=== PATIENT | male | born 1950 | race Caucasian/White ===

== ENCOUNTER → 2020-04-09 | Outpatient (CLI) | payer MEDICARE ==
[~2020-04-09] MED LIST: ATOR40TA PO; ENAHYD PO; FEXPSEER PO; Lisinopril-Hct1 EAC4 PO; METPRE4DP PO; OMEP20ER PO; PRAV20 PO; Robaxin-750750 MG PO; TRAM50 PO
== END ==
LOC: LAB SHORT 08:03 → PLD 08:03
DX: D48.5 Neoplasm of uncertain behavior of skin (principal); Z88.5 Allergy status to narcotic agent
CPT/HCPCS: 88305

== ENCOUNTER 2020-05-06 07:35 | Emergency (ER) | payer MEDICARE ==
[~2020-05-06] VITALS: Ht 172.7 cm; Wt 77.1 kg
[~2020-05-06 07:35] MED LIST changes: -ATOR40TA PO; -Lisinopril-Hct1 EAC4 PO; -METPRE4DP PO; -Robaxin-750750 MG PO; -TRAM50 PO
[2020-05-06] MEDS ORDERED: Lisinopril-Hct1 EAC4 PO (07:46)
[2020-05-06] MEDS ORDERED: ATOR40TA PO (07:46)
[2020-05-06] MEDS ORDERED: METPRE4DP PO (09:41)
[2020-05-06] MEDS ORDERED: Robaxin-750750 MG PO (09:41)
[2020-05-06] MEDS ORDERED: TRAM50 PO (09:41)
== END 2020-05-06 10:10 | disposition home or self-care (01) ==
LOC: ER 07:35
DX: M54.17 Radiculopathy, lumbosacral region (principal); G89.29 Other chronic pain; K21.9 Gastro-esophageal reflux disease without esophagitis; E78.5 Hyperlipidemia, unspecified; Z79.899 Other long term (current) drug therapy; Z88.5 Allergy status to narcotic agent
CPT/HCPCS: 72100; 96372-59; 99283-25; A9270; J1100; J1170

== ENCOUNTER 2022-01-06 09:29 | Emergency (ER) | payer MEDICARE ==
[~2022-01-06] VITALS: Ht 172.7 cm; Wt 94.3 kg
[~2022-01-06 09:29] MED LIST changes: +ATOR40TA PO; +Lisinopril-Hct1 EAC4 PO; +METPRE4DP PO; +Robaxin-750750 MG PO; +TRAM50 PO
[2022-01-06] MEDS ORDERED: CEPH500 PO (11:05)
[2022-01-06] MEDS ORDERED: LISINOPRIL-HCT1 EAC1 PO (11:07)
[2022-01-06] MEDS ORDERED: Cephalexin500 M1 PO (11:31)
== END 2022-01-06 11:46 | disposition home or self-care (01) ==
LOC: ER 09:29
DX: S61.211A Laceration without foreign body of left index finger without damage to nail, initial encounter (principal); W31.2XXA Contact with powered woodworking and forming machines, initial encounter; E78.5 Hyperlipidemia, unspecified; K21.9 Gastro-esophageal reflux disease without esophagitis; Z79.899 Other long term (current) drug therapy; Z88.5 Allergy status to narcotic agent; Z23 Encounter for immunization
CPT/HCPCS: 73140; 90714